=== PATIENT | female | born 1990 | race Caucasian/White ===

== ENCOUNTER 2016-05-23 13:48 | Emergency (ER) ==
[2016-05-23 13:54] VITALS: BP 123/84; TEMP 99.4; BMI 38.9
[2016-05-23] MEDS ORDERED: MOTRIN PO STA (14:20)
--- NOTE | 2016-05-23 14:20 | ED.PDOC ---
General ED Provider: Dr. ANJANA ROBERSON Chief Complaint: Sore Throat Stated Complaint: Patient is a 26 year old female who states she developed pain to throat last pm. Also reports had left earache but denies any fever, Admits to some coughing Time Seen by Physician: 14:00 Mode of Arrival: Walk-In Information Source: Patient Exam Limitations: No limitations [facility] Documentation Reviewed and Agree: Yes EENT Complaint Exam - Throat Complaint/Exam Onset/Duration: 1 day Symptoms Are: Still present Timimg: Constant Initial Severity: Moderate Current Severity: Mild Aggravating: Reports: Eating Alleviating: Reports: None Associated Signs and Symptoms: Reports: Fever, Dysphagia, Cough. Denies: Drooling, Foreign body sensation, Chills, Wheezing, Hoarseness, Sinus discomfort , Nasal congestion, Difficulty breathing, Lethargy, Irritability, Decreased activity, Vomiting, Diarrhea, Decreased hearing, Ear drainage Related History: Denies: Similar Episode, Seasonal allergies, Smoking Uvula Midline: No Gypsy-tonsillar Fluctuence: No Scarlatinaform Rash Present: No Lesions: Absent: Lip, Gums, Tongue, Buccal Mucosa, Pharynx Exanthem: Absent: Lip, Gums, Tongue, Buccal Mucosa, Pharynx Vesicles: Absent: Lip, Gums, Tongue, Buccal Mucosa, Pharynx Stridor Present: No Sinus Tenderness Present: No Tonsillar Hypertrophy Present: Yes Tonsillar Exudate Present: No Gypsy-tonsillar Swelling Present: No Adenopathy Present: No Splenomegaly Present: No Differential Diagnoses: Pharyngitis, URI Review of Systems - Review Of Systems Constitutional: Reports: No symptoms Eyes: Reports: No symptoms Ears, Nose, Mouth, Throat: Reports: Throat pain Respiratory: Reports: No symptoms Cardiac: Reports: No symptoms GI: Reports: No symptoms : Reports: No symptoms Musculoskeletal: Reports: No symptoms Skin: Reports: No symptoms Neurological: Reports: No symptoms Endocrine: Reports: No symptoms Hematologic/Lymphatic: Reports: No symptoms All Other Systems: Reviewed and Negative Past Medical History - Past Medical History Previously Healthy: Yes Endocrine: Reports: None Cardiovascular: Reports: None Respiratory: Reports: None Hematological: Reports: None Gastrointestinal: Reports: GERD Genitourinary: Reports: None Neuro/Psych: Reports: Migraine Musculoskeletal: Reports: None Cancer: Reports: None Last Menstrual Period: apr 27 Other Pertinent Past Medical History: left knee injury - Surgical History General Surgical History: Reports: None - Family History Family History: Reports: None - Social History Smoking Status: Never smoker Hx Substance Use: No Alcohol Screening: None Physical Exam - Physical Exam Appearance: Ill-appearing, Well-nourished Ill-appearing: Mild Pain Distress: Mild Eyes: RON, EOMI, Conjunctiva clear ENT: Ears normal, Nose normal, Oropharynx normal, Erythema Respiratory: Airway patent, Breath sounds clear, Breath sounds equal, Respirations nonlabored Cardiovascular: RRR, Pulses normal, No rub, No murmur GI/: Soft, Nontender, No masses, Bowel sounds normal, No Organomegaly Musculoskeletal: Normal strength, ROM intact, No edema, No calf tenderness Skin: Warm, Dry, Normal color Neurological: Sensation intact, Motor intact, Reflexes intact, Cranial nerves intact, Alert, Oriented Psychiatric: Affect appropriate, Mood appropriate Critical Care Note - Critical Care Note Total Time (mins): 0 Course - Course Orders, Labs, Meds: Orders Category Date Time Status RAPID FLU A/B Stat LAB 05/23/16 14:08 Uncollected STREP SCREEN Stat LAB 05/23/16 14:07 Uncollected Vital Signs: Temp Pulse Resp BP Pulse Ox 05/23/16 13:49 99.4 F 109 H 20 123/84 96 Departure - Departure Time of Disposition: 14:34 Disposition: HOME SELF-CARE Discharge Problem: Sore throat symptom Instructions: Pharyngitis (ED) Condition: Fair Pt referred to PMD for follow-up: Yes Additional Instructions: Take medications as prescribed. Follow up with PCP in 3 day Take Tylenol or Motrin as needed for pain. Prescriptions: Amoxicillin [Amoxil] 500 mg PO TID #30 capsule Ibuprofen [Motrin] 600 mg PO Q6H PRN #20 tablet PRN Reason: Analgesia Allergies/Adverse Reactions: Allergies No Known Allergies Allergy (Verified 05/23/16 13:55) Home Medications: Ambulatory Orders Clonazepam [Klonopin] 0.5 mg PO TID #90 02/13/16 Escitalopram Oxalate [Lexapro] 10 mg PO DAILY #30 05/07/16 Gabapentin [Neurontin] 100 mg PO TID #90 05/07/16 Amoxicillin [Amoxil] 500 mg PO TID #30 capsule 05/23/16 Ibuprofen [Motrin] 600 mg PO Q6H PRN #20 tablet 05/23/16 Disposition Discussed With: Patient
[2016-05-23 14:27] LABS: FLU INTERNAL QC INTERNAL QC VALID; RAPID FLU A NEGATIVE (NEGATIVE); RAPID FLU B NEGATIVE (NEGATIVE)
== END 2016-05-23 14:58 | disposition home or self-care (01) ==
LOC: ED 13:48
DX: J02.9 Acute pharyngitis, unspecified (principal)
CPT/HCPCS: 87651; 87804; 87880; 99283

== ENCOUNTER 2016-06-26 16:26 | Outpatient (CLI) ==
[2016-06-19 08:20] VITALS: BMI 38.9
[2016-06-26 16:53] LABS: BASOPHILS # (AUTO) 0.1 K/uL (0-0.2); BASOPHILS % (AUTO) 0.4 % (0.0-3.0); EOSINOPHILS # (AUTO) 0.2 K/ul (0.0-0.7); EOSINOPHILS % (AUTO) 1.8 % (0.0-7.0); HEMATOCRIT 41.5 % (37.0-47.0); HEMOGLOBIN 13.5 g/dl (12.0-16.0); IMMATURE GRANULOCYTE % (AUTO) 0.2 % (0.0-5.0); LYMPHOCYTES # (AUTO) 3.1 K/uL (0.60-3.4); MEAN CORPUSCULAR HEMOGLOBIN 27.9 pg (27.0-31.0); MEAN CORPUSCULAR HGB CONC 32.5 (31.8-35.4); MEAN CORPUSCULAR VOLUME 85.7 fl (81.0-99.0); NEUTROPHILS # (AUTO) 7.7 K/ul (2.0-6.9); NEUTROPHILS % (AUTO) 63.6; PLATELET COUNT 425 10^3/uL (140-440); RED BLOOD COUNT 4.84 10^6/ul (4.20-5.40); WHITE BLOOD COUNT 12.07 K/ul (4.6-10.2)
[2016-06-26 17:03] LABS: ALBUMIN 3.9 g/dL (3.4-5.0); ALBUMIN/GLOBULIN RATIO 1.05; ANION GAP 13.4; BILIRUBIN,TOTAL 0.45 mg/dL (0.00-1.20); BUN/CREATININE RATIO 7.69; CALCIUM 9.3 mg/dL (8.2-10.2); CREATININE 0.78 mg/dL (0.60-1.30); POTASSIUM 3.4 mmol/L (3.5-5.10); SERUM PREGNANCY INTERNAL QC INTERNAL QC VALID; TOTAL PROTEIN 7.6 g/dL (6.4-8.2)
[2016-06-26 17:27] LABS: BILIRUBIN,URINE Negative (NEGATIVE); KETONES,URINE Negative (NEGATIVE); LEUKOCYTE ESTERASE ,URINE Negative (NEGATIVE); NITRITE,URINE Negative (NEGATIVE); PROTEIN,URINE Negative (NEGATIVE)
[2016-06-26 17:40] LABS: ADD URINE MICROSCOPIC YES; URINE, BLOOD 1+ (NEGATIVE)
== END 2016-06-26 16:27 | disposition home or self-care (01) ==
LOC: LAB 16:26
PROVIDERS: ATTEND Nurse Practitioner Family
DX: N91.2 Amenorrhea, unspecified (principal); R11.2 Nausea with vomiting, unspecified
CPT/HCPCS: 36415; 80053; 81001; 82150; 83690; 84703; 85025; 87800

== ENCOUNTER 2016-08-13 22:22 | Emergency (ER) ==
[2016-08-13 22:29] VITALS: BP 122/74; TEMP 97.9; BMI 40.5
[2016-08-13 22:52] LABS: FLU INTERNAL QC INTERNAL QC VALID; RAPID FLU A NEGATIVE (NEGATIVE); RAPID FLU B NEGATIVE (NEGATIVE)
--- NOTE | 2016-08-13 22:52 | ED.PDOC ---
General ED Provider: Dr. KENNEDI LEBRON-ER Chief Complaint: Sore Throat Stated Complaint: my throat hursts Time Seen by Physician: 22:30 Mode of Arrival: Walk-In Information Source: Patient Exam Limitations: No limitations [facility] T[facility] Documentation Reviewed and Agree: Yes EENT Complaint Exam - Throat Complaint/Exam Onset/Duration: 2 days Symptoms Are: Still present Timimg: Intermittent Initial Severity: Mild Current Severity: Mild Aggravating: Reports: Eating Alleviating: Reports: Antipyretics Associated Signs and Symptoms: Reports: Fever, Nasal congestion. Denies: Dysphagia, Drooling, Chills, Cough, Wheezing, Hoarseness, Sinus discomfort, Difficulty breathing, Lethargy, Irritability, Vomiting, Diarrhea, Decreased hearing, Ear drainage Uvula Midline: Yes Gypsy-tonsillar Fluctuence: No Scarlatinaform Rash Present: No Exanthem: Present: Pharynx Stridor Present: No Sinus Tenderness Present: No Tonsillar Hypertrophy Present: No Tonsillar Exudate Present: No Gypsy-tonsillar Swelling Present: No Adenopathy Present: Yes Splenomegaly Present: No Differential Diagnoses: Pharyngitis Review of Systems - Review Of Systems Constitutional: Reports: No symptoms Eyes: Reports: No symptoms Ears, Nose, Mouth, Throat: Reports: Throat pain Respiratory: Reports: No symptoms Cardiac: Reports: No symptoms GI: Reports: No symptoms : Reports: No symptoms Musculoskeletal: Reports: No symptoms Skin: Reports: No symptoms Neurological: Reports: No symptoms Endocrine: Reports: No symptoms Hematologic/Lymphatic: Reports: No symptoms All Other Systems: Reviewed and Negative Past Medical History - Past Medical History Previously Healthy: Yes Endocrine: Reports: None Cardiovascular: Reports: None Respiratory: Reports: None Hematological: Reports: None Gastrointestinal: Reports: GERD Genitourinary: Reports: None Neuro/Psych: Reports: Migraine Musculoskeletal: Reports: None Cancer: Reports: None Last Menstrual Period: JULY 27 2016 Other Pertinent Past Medical History: left knee injury - Surgical History General Surgical History: Reports: None - Family History Family History: Reports: None - Social History Smoking Status: Never smoker Hx Substance Use: No Alcohol Screening: None Lives: With family - Immunizations Tetanus Shot up to Date: No Physical Exam - Physical Exam Appearance: Well-appearing, No pain distress, Well-nourished Pain Distress: Mild Eyes: RON, EOMI, Conjunctiva clear ENT: Ears normal, Nose normal, Oropharynx normal, Erythema Neck: Supple Respiratory: Airway patent, Breath sounds clear, Breath sounds equal, Respirations nonlabored Cardiovascular: RRR, Pulses normal, No rub, No murmur GI/: Soft, Nontender, No masses, Bowel sounds normal, No Organomegaly Musculoskeletal: Normal strength, ROM intact, No edema, No calf tenderness Skin: Warm, Dry, Normal color Neurological: Sensation intact, Motor intact, Reflexes intact, Cranial nerves intact, Alert, Oriented Psychiatric: Affect appropriate Critical Care Note - Critical Care Note Total Time (mins): 0 Course - Course Orders, Labs, Meds: Orders Category Date Time Status MOLECULAR GROUP A STREP Stat LAB 08/13/16 22:30 Results RAPID FLU A/B Stat LAB 08/13/16 22:30 Received RAPID STREP SCREEN [STREP SCREEN] Stat LAB 08/13/16 22:30 Results Vital Signs: Temp Pulse Resp BP Pulse Ox 08/13/16 22:24 97.9 F 77 18 122/74 98 Departure - Departure Time of Disposition: 22:52 Disposition: HOME SELF-CARE Discharge Problem: Streptococcal sore throat Instructions: Pharyngitis (ED) Condition: Good Pt referred to PMD for follow-up: Yes Additional Instructions: keflex 500mg bid x 7days--salt water gargles--recheck in 48hrs if not better Allergies/Adverse Reactions: Allergies No Known Allergies Allergy (Verified 08/13/16 22:26) Home Medications: Ambulatory Orders Clonazepam [Klonopin] 0.5 mg PO QID #120 02/13/16 Escitalopram Oxalate [Lexapro] 10 mg PO DAILY #30 05/07/16 Gabapentin [Neurontin] 100 mg PO TID #90 05/07/16 Ibuprofen [Motrin] 600 mg PO Q6H PRN #20 tablet 05/23/16 Disposition Discussed With: Patient
== END 2016-08-13 23:10 | disposition home or self-care (01) ==
LOC: ED 22:22
DX: J02.0 Streptococcal pharyngitis (principal)
CPT/HCPCS: 87651; 87804; 87880; 99283

== ENCOUNTER 2016-09-03 19:52 | Emergency (ER) ==
[2016-09-03 19:57] VITALS: BP 126/84; TEMP 97.8; BMI 38.0
[2016-09-03] MEDS ORDERED: MOTRIN PO STA (20:10)
--- NOTE | 2016-09-03 20:27 | ED.PDOC ---
General ED Provider: Dr. ANJANA ROBERSON Chief Complaint: Non-specific Complaint Stated Complaint: Presents to the ER with Left posterior Auricualr swelling and tenderness for one day. denies any sore thorat or ear pain. She has been treated recently for strep Time Seen by Physician: 20:00 Mode of Arrival: Walk-In Information Source: Patient Exam Limitations: No limitations Primary Care Provider: ADELAIDE MAYEN Nursing and Triage Documentation Reviewed and Agree: Yes Skin Complaint Exam - Skin/Soft Tissue Complaint/Exam Onset/Duration: 1 day Symptoms Are: Still present Timing: Constant Initial Severity: Moderate Current Severity: Moderate Location: Left posterior Auricular Character: Reports: Swelling, Raised, Painful Aggravating: Reports: Unknown Alleviating: Reports: Unknown Associated Signs and Symptoms: Reports: Tenderness. Denies: Fever, Chills, Itching, Drainage, Bruising, Red streaks Related History: Denies: Similar episode, Recent trauma, Foreign body, Insect bite/sting, Recent Med change, Prior MRSA/VRE, Recent inpatient, Recent travel, Immunocompromised Related Surgical History: Reports: None Recent Exposure to Others w/Similar Symptoms: Yes Skin Findings: Present: Lymphadenopathy Joint Tenderness Present: No Differential Diagnoses: Abscess, Cellulitis, Infection, Lymphadenitis Review of Systems - Review Of Systems Constitutional: Reports: No symptoms Eyes: Reports: No symptoms Ears, Nose, Mouth, Throat: Reports: Ear pain. Denies: Ear discharge, Nose pain Respiratory: Reports: No symptoms Cardiac: Reports: No symptoms GI: Reports: No symptoms : Reports: No symptoms Musculoskeletal: Reports: No symptoms Skin: Reports: No symptoms Neurological: Reports: No symptoms Endocrine: Reports: No symptoms Hematologic/Lymphatic: Reports: No symptoms All Other Systems: Reviewed and Negative Past Medical History - Past Medical History Previously Healthy: Yes Endocrine: Reports: None Cardiovascular: Reports: None Respiratory: Reports: None Hematological: Reports: None Gastrointestinal: Reports: GERD Genitourinary: Reports: None Neuro/Psych: Reports: Migraine Musculoskeletal: Reports: None Cancer: Reports: None Last Menstrual Period: 09/03/16 Other Pertinent Past Medical History: left knee injury, strep - Surgical History General Surgical History: Reports: None - Family History Family History: Reports: None - Social History Smoking Status: Never smoker Hx Substance Use: No Alcohol Screening: None - Immunizations Tetanus Shot up to Date: No Physical Exam - Physical Exam Appearance: Well-appearing, Obese Pain Distress: Mild Eyes: RON, EOMI, Conjunctiva clear ENT: Ears normal, Nose normal, Oropharynx normal Neck: Supple Respiratory: Airway patent, Breath sounds clear, Breath sounds equal, Respirations nonlabored Cardiovascular: RRR, Pulses normal, No rub, No murmur GI/: Soft, Nontender, No masses, Bowel sounds normal, No Organomegaly Musculoskeletal: Normal strength, ROM intact, No edema, No calf tenderness Skin: Warm, Dry, Normal color Neurological: Sensation intact, Motor intact, Reflexes intact, Cranial nerves intact, Alert, Oriented Psychiatric: Affect appropriate, Mood appropriate Critical Care Note - Critical Care Note Total Time (mins): 0 Course - Course Orders, Labs, Meds: Orders Category Date Time Status Ibuprofen [Motrin] MEDS 09/03/16 20:10 Discontinued 600 mg PO ONCE STA Medications Discontinued Medications Generic Name Dose Route Start Last Admin Trade Name Freq PRN Reason Stop Dose Admin Ibuprofen 600 mg 09/03/16 20:10 09/03/16 20:27 Motrin PO 09/03/16 20:11 600 mg ONCE STA Administration Vital Signs: Temp Pulse Resp BP Pulse Ox 09/03/16 19:54 97.8 F 90 16 126/84 98 Departure - Departure Time of Disposition: 20:31 Disposition: HOME SELF-CARE Discharge Problem: Lymphadenitis, acute Instructions: Lymphangitis (ED) Condition: Good Pt referred to PMD for follow-up: Yes Additional Instructions: Take Tylenol or Motrin as needed for pain or fever Follow up with PCP in 3 days Allergies/Adverse Reactions: Allergies No Known Allergies Allergy (Verified 09/03/16 19:58) Home Medications: Ambulatory Orders Clonazepam [Klonopin] 0.5 mg PO QID #120 02/13/16 Escitalopram Oxalate [Lexapro] 10 mg PO DAILY #30 05/07/16 Gabapentin [Neurontin] 100 mg PO TID #90 05/07/16 Disposition Discussed With: Patient, Family
== END 2016-09-03 20:45 | disposition home or self-care (01) ==
LOC: ED 19:52
DX: L04.0 Acute lymphadenitis of face, head and neck (principal)
CPT/HCPCS: 99282

== ENCOUNTER 2016-12-24 08:55 | Outpatient (CLI) ==
--- NOTE | 2016-12-24 09:50 | MRI ---
EXAM: Brain MRI without contrast. HISTORY: Headache. COMPARISON: Head CT 10/02/2011. TECHNIQUE: Multiplanar, multisequence MR images were acquired of the brain without contrast. FINDINGS: The midline structures are central and the craniocervical junction is unremarkable. The ventricles, sulci and cisterns are generally normal in size and configuration. There is mild promin ence of the right atrium and occipital horn of the lateral ventricle compared to the left which is c onsidered within normal variation. There are no abnormal extra-axial fluid collections. The brain parenchyma has no diffusion restriction to suggest acute hypoperfusion or infarction. The re are no abnormal T2 hyperintensities or foci of dark gradient echo signal. The corpus callosum hobson s a normal configuration. The pituitary gland is unremarkable. There are no intraorbital masses. Mild mucosal thickening is present in both maxillary sinuses and there is a small developing polyp or mucous retention cyst in the left maxillary sinus. There is mi ld adenoidal hypertrophy which is considered normal for the patient's age. Middle ears and mastoids are clear. Flow voids are present in the major intracranial arteries and dural venous sinuses. IMPRESSION: 1. No intracranial mass, hemorrhage or acute cerebral infarct. 2. Minor bilateral maxillary sinus disease.
== END 2016-12-24 08:56 | disposition home or self-care (01) ==
LOC: RAD 08:55
PROVIDERS: ATTEND Nurse Practitioner Family
DX: R51 Headache (principal)

== ENCOUNTER 2017-02-11 20:16 | Emergency (ER) ==
[2017-02-11 20:20] VITALS: BP 119/80; TEMP 98.6; BMI 38.8
--- NOTE | 2017-02-11 20:23 | ED.PDOC ---
General ED Provider: Dr. KENNEDI LEBRON-ER Chief Complaint: Sore Throat Stated Complaint: my throat hurts and i have been arouind strep Time Seen by Physician: 20:21 Mode of Arrival: Walk-In Information Source: Patient Exam Limitations: No limitations Primary Care Provider: ADELAIDE MAYEN Nursing and Triage Documentation Reviewed and Agree: Yes EENT Complaint Exam - Throat Complaint/Exam Onset/Duration: 24htrs Symptoms Are: Still present Timimg: Constant Initial Severity: Mild Current Severity: Mild Alleviating: Reports: Antipyretics Associated Signs and Symptoms: Reports: Fever, Nasal congestion. Denies: Dysphagia, Drooling, Foreign body sensation, Chills, Cough, Wheezing, Hoarseness , Sinus discomfort, Difficulty breathing, Lethargy, Irritability, Decreased activity, Vomiting, Diarrhea, Decreased hearing, Ear drainage Related History: Reports: Similar Episode Uvula Midline: No Gypsy-tonsillar Fluctuence: No Scarlatinaform Rash Present: No Exanthem: Present: Pharynx Stridor Present: No Sinus Tenderness Present: No Tonsillar Hypertrophy Present: Yes Tonsillar Exudate Present: No Gypsy-tonsillar Swelling Present: No Adenopathy Present: Yes Splenomegaly Present: No Differential Diagnoses: Pharyngitis Review of Systems - Review Of Systems Constitutional: Reports: No symptoms Eyes: Reports: No symptoms Ears, Nose, Mouth, Throat: Reports: Throat pain Respiratory: Reports: No symptoms Cardiac: Reports: No symptoms GI: Reports: No symptoms : Reports: No symptoms Musculoskeletal: Reports: No symptoms Skin: Reports: No symptoms Neurological: Reports: No symptoms Endocrine: Reports: No symptoms Hematologic/Lymphatic: Reports: No symptoms All Other Systems: Reviewed and Negative Past Medical History - Past Medical History Previously Healthy: Yes Endocrine: Reports: None Cardiovascular: Reports: None Respiratory: Reports: None Hematological: Reports: None Gastrointestinal: Reports: GERD Genitourinary: Reports: None Neuro/Psych: Reports: Migraine Musculoskeletal: Reports: None Cancer: Reports: None Last Menstrual Period: LAST MONTH Other Pertinent Past Medical History: left knee injury, strep - Surgical History General Surgical History: Reports: None - Family History Family History: Reports: None - Social History Smoking Status: Never smoker Hx Substance Use: No Alcohol Screening: None - Immunizations Tetanus Shot up to Date: Yes Physical Exam - Physical Exam Appearance: Well-appearing, No pain distress, Well-nourished Eyes: RON, EOMI, Conjunctiva clear ENT: Rhinorrhea, Erythema Neck: Supple Respiratory: Airway patent, Breath sounds clear, Breath sounds equal, Respirations nonlabored Cardiovascular: RRR GI/: Soft Musculoskeletal: Normal strength Skin: Warm, Dry, Normal color Neurological: Sensation intact Psychiatric: Affect appropriate, Mood appropriate Critical Care Note - Critical Care Note Total Time (mins): 0 Course - Course Vital Signs: Temp Pulse Resp BP Pulse Ox 02/11/17 20:16 98.6 F 93 H 18 119/80 97 Departure - Departure Time of Disposition: 20:22 Disposition: HOME SELF-CARE Discharge Problem: Pharyngitis Qualifiers: Pharyngitis/tonsillitis etiology: unspecified etiology Qualified Code(s): J02.9 - Acute pharyngitis, unspecified Instructions: Pharyngitis (ED) Condition: Good Pt referred to PMD for follow-up: Yes Additional Instructions: amoxil 250mg tid x 7days--tylenol for pain--soft foods--rcheck in 72hrs if not better Allergies/Adverse Reactions: Allergies No Known Allergies Allergy (Unverified 02/11/17 20:20) Disposition Discussed With: Patient
== END 2017-02-11 20:25 | disposition home or self-care (01) ==
LOC: ED 20:16
DX: J02.9 Acute pharyngitis, unspecified (principal)
CPT/HCPCS: 99282

== ENCOUNTER 2017-02-16 16:33 | Outpatient (CLI) | END 2017-02-16 16:34 | disposition home or self-care (01) | LOC: LAB 16:33 | PROVIDERS: ATTEND Emergency Medicine | DX: J02.9 Acute pharyngitis, unspecified (principal) | CPT/HCPCS: 87880 ==

== ENCOUNTER 2017-07-26 17:30 | Emergency (ER) ==
[2017-07-26 17:36] VITALS: BP 122/86; TEMP 97.9; BMI 38.0
--- NOTE | 2017-07-26 17:48 | ED.PDOC ---
General ED Provider: Dr. JOCELYNE POLANCO Chief Complaint: Earache Stated Complaint: RIGHT EAR PAIN Time Seen by Physician: 17:40 (SEEN WITH BERKLEY) Mode of Arrival: Walk-In Information Source: Patient Exam Limitations: No limitations Primary Care Provider: ADELAIDE MAYEN Nursing and Triage Documentation Reviewed and Agree: Yes Reviewed sepsis parameters & appropriate labs ordered?: Yes (WHILE CLEANING EAR WITH QTIP SHOVED IT IN THE RIGHT EAR, NOTED PAIN/ BLOOD) System Inflammatory Response Syndrome: Not Applicable Sepsis Protocol: For patient's 13 years and over: Temp is 96.8 and below OR 101 and greater Pulse >90 BPM Resp >20/minute Acutely Altered Mental Status Are patient's symptoms suggestive of a new infection, such as: -Pneumonia -Skin, Soft Tissue -Endocarditis -UTI -Bone, Joint Infection -Implantable Device -Acute Abdominal Infection -Wound Infection -Meningitis -Blood Stream Catheter Infection -Unknown System Inflammatory Response Syndrome: Not Applicable EENT Complaint Exam - Ear Complaint/Exam Onset/Duration: 1 HR AGO Symptoms Are: Resolved Timing: Intermittent Initial Severity: Moderate Current Severity: Mild Character: Reports: Dull pain Aggravating: Reports: None Alleviating: Reports: None Associated Signs and Symptoms: Reports: Bleeding. Denies: Ear trauma, Ear swelling, Discharge, Fever, Hearing loss, Sore throat, Headache, URI symptoms, Foreign body sensation, Rash, Pain to external ear, Pain to external face Ear Surgical History: None Vesicles to External Pinna: No Vesicles to Tragus: No TMJ Tenderness: None Mastoid Tenderness: None Tragal Tenderness: None External Canal: Normal Material in Canal: Present: Blood Tympanic Membrane: Perforation Differential Diagnoses: Perforated TM Review of Systems - Review Of Systems Constitutional: Reports: No symptoms Eyes: Reports: No symptoms Ears, Nose, Mouth, Throat: Reports: No symptoms Respiratory: Reports: No symptoms Cardiac: Reports: No symptoms GI: Reports: No symptoms : Reports: No symptoms Musculoskeletal: Reports: No symptoms Skin: Reports: No symptoms Neurological: Reports: No symptoms Endocrine: Reports: No symptoms Hematologic/Lymphatic: Reports: No symptoms All Other Systems: Reviewed and Negative Past Medical History - Past Medical History Previously Healthy: Yes Endocrine: Reports: None Cardiovascular: Reports: None Respiratory: Reports: None Hematological: Reports: None Gastrointestinal: Reports: GERD Genitourinary: Reports: None Neuro/Psych: Reports: Migraine Musculoskeletal: Reports: None Cancer: Reports: None Last Menstrual Period: last month Other Pertinent Past Medical History: left knee injury, strep - Surgical History General Surgical History: Reports: None - Family History Family History: Reports: None - Social History Smoking Status: Never smoker Hx Substance Use: No Alcohol Screening: None Physical Exam - Physical Exam Appearance: Well-appearing, No pain distress, Well-nourished Eyes: RON, EOMI, Conjunctiva clear ENT: Ears normal (LEFT RIGHT RUPTURED TM) Respiratory: Airway patent, Breath sounds clear, Breath sounds equal, Respirations nonlabored Cardiovascular: RRR, Pulses normal, No rub, No murmur GI/: Soft, Nontender, No masses, Bowel sounds normal, No Organomegaly Musculoskeletal: Normal strength, ROM intact, No edema, No calf tenderness Skin: Warm, Dry, Normal color Neurological: Sensation intact, Motor intact, Reflexes intact, Cranial nerves intact, Alert, Oriented Psychiatric: Affect appropriate, Mood appropriate Critical Care Note - Critical Care Note Total Time (mins): 0 Course - Course Vital Signs: Temp Pulse Resp BP Pulse Ox 07/26/17 17:30 97.9 F 80 20 122/86 98 Departure - Departure Time of Disposition: 17:48 Disposition: HOME SELF-CARE Discharge Problem: Ear problem Perforated ear drum Qualifiers: Laterality: right Qualified Code(s): H72.91 - Unspecified perforation of tympanic membrane, right ear Instructions: Earache (ED) Condition: Good Pt referred to PMD for follow-up: Yes IPMP verified?: No Additional Instructions: Please call your Family Physician as soon as possible to schedule a follow-up appointment.YOUR EAR DRUM IS TORN YOU MUST SEE THE [facility] Prescriptions: Ciprofloxacin/Hydrocortisone [Cipro Hc Otic Suspension] 10 ml OT Q8HR 7 Days drops.susp Allergies/Adverse Reactions: Allergies No Known Allergies Allergy (Verified 07/26/17 17:37) Home Medications: Ambulatory Orders Ciprofloxacin/Hydrocortisone [Cipro Hc Otic Suspension] 10 ml OT Q8HR 7 Days drops.susp 07/26/17 Disposition Discussed With: Patient
== END 2017-07-26 18:02 | disposition home or self-care (01) ==
LOC: ED 17:30
DX: H72.91 Unspecified perforation of tympanic membrane, right ear (principal)
CPT/HCPCS: 99282

== ENCOUNTER 2017-08-04 10:39 | Outpatient (POV) | END 2017-08-04 17:00 | LOC: OUTPT 10:39 | PROVIDERS: ATTEND Otolaryngology | DX: H91.90 Unspecified hearing loss, unspecified ear (principal) ==

== ENCOUNTER 2017-08-12 11:20 | Outpatient (CLI) | END 2017-08-12 11:21 | disposition home or self-care (01) | LOC: RHC-LAB 11:20 | PROVIDERS: ATTEND Nurse Practitioner Family | DX: J02.9 Acute pharyngitis, unspecified (principal) | CPT/HCPCS: 87651 ==

== ENCOUNTER 2017-09-09 09:20 | Outpatient (CLI) | END 2017-09-09 09:21 | disposition home or self-care (01) | LOC: FCC-LAB 09:20 | PROVIDERS: ATTEND Nurse Practitioner Family | DX: R11.2 Nausea with vomiting, unspecified (principal); M54.9 Dorsalgia, unspecified | CPT/HCPCS: 36415; 80053; 81001; 82150; 83690; 85025 ==

== ENCOUNTER 2017-10-19 15:10 | Outpatient (CLI) | END 2017-10-19 15:11 | disposition home or self-care (01) | LOC: FCC-LAB 15:10 | PROVIDERS: ATTEND Nurse Practitioner Family | DX: J02.9 Acute pharyngitis, unspecified (principal) | CPT/HCPCS: 87651 ==